=== PATIENT | female | born 1970 | race African-American/Black ===

== ENCOUNTER 2022-07-17 18:03 | Emergency (ER) | payer BC ==
[2022-07-17] MEDS ORDERED: Acetaminophen 325 MG TAB ONE (18:32)
[2022-07-17] MEDS ORDERED: Ondansetron ODT 4 MG TAB ONE (21:32)
[2022-07-17] MEDS ORDERED: Ibuprofen 200 MG TAB ONE (21:33)
== END 2022-07-17 22:08 | disposition home or self-care (01) ==
LOC: CSHERS 18:03
DX: U07.1 COVID-19 (principal); I10 Essential (primary) hypertension; F17.210 Nicotine dependence, cigarettes, uncomplicated
CPT/HCPCS: 99283; Q0162

== ENCOUNTER 2022-09-05 22:18 | Emergency (ER) | payer BC ==
[2022-09-05] MEDS ORDERED: Acetaminophen 500 MG TAB ONE (23:34)
== END 2022-09-06 01:04 | disposition home or self-care (01) ==
LOC: CSHERS 22:18
DX: J10.1 Influenza due to other identified influenza virus with other respiratory manifestations (principal); I10 Essential (primary) hypertension; F17.290 Nicotine dependence, other tobacco product, uncomplicated
CPT/HCPCS: 87804; 99284

== ENCOUNTER 2022-12-09 11:38 | Emergency (ER) | payer BC ==
[2022-12-09] MEDS ORDERED: Acetaminophen 500 MG TAB ONE (12:46)
[2022-12-09] MEDS ORDERED: Ibuprofen 200 MG TAB ONE (12:46)
== END 2022-12-09 13:58 | disposition home or self-care (01) ==
LOC: CSHERS 11:38
DX: R07.89 Other chest pain (principal); R07.81 Pleurodynia; I10 Essential (primary) hypertension; F17.290 Nicotine dependence, other tobacco product, uncomplicated

== ENCOUNTER 2024-09-20 17:01 | Emergency (ER) | payer BC ==
[2024-09-20 19:21] LABS: #Basophils 0.03 10x3/uL (0.0-0.2); #Eosinophils 0.22 10x3/uL (0.0-0.5); #Monocytes 0.77 10x3/uL (0.0-1.1); #Neutrophils 3.36 10x3/uL (1.5-8.4); %Basophils 0.5 % (0.0-2.0); %Eosinophils 3.5 % (0.0-6.0); %Monocytes 12.3 % (0.0-10.0); %Neutrophils 53.5 % (40.0-75.0); Hematocrit 39.4 % (34.9-44.5); Hemoglobin 12.6 g/dL (12.0-15.5); Mean Corpuscular Hemoglobin 28.8 pg (27.0-33.0); Mean Platelet Volume 10.9 fL (7.4-10.4); Platelet Count 232 10x3/uL (150-450); RBC Distribution Width 14.5 % (11.5-14.5); Red Blood Cell (RBC) Count 4.38 10x6/uL (3.90-5.03); White Blood Cell (WBC) Count 6.3 10x3/uL (3.5-10.5)
[2024-09-20 19:34] LABS: ALT (SGPT) 18 U/L (8-55); AST (SGOT) 17 U/L (5-34); Albumin 3.8 g/dL (3.5-5.0); Alkaline Phosphatase 55 U/L (40-110); Anion Gap 12 mmol/L (10-20); BUN (Urea Nitrogen) 19 mg/dL (9.8-20.1); Bilirubin, Total 0.2 mg/dL (0.2-1.2); Calc. Creatinine Clearance 0 mL/min (70-130); Calcium 10.1 mg/dL (7.8-10.44); Carbon Dioxide 29 mmol/L (22-29); Chloride 106 mmol/L (98-107); Estimated GFR 75; Globulin 3.8 g/dL (2.4-3.5); Glucose 92 mg/dL (70-105); Potassium 4.1 mmol/L (3.5-5.1); Protein, Total 7.6 g/dL (6.0-8.3); Sodium 143 mmol/L (136-145)
[2024-09-20] MEDS ORDERED: Ketorolac Tromethamine 30 MG (1 mL) VIAL ONE (19:50)
== END 2024-09-20 20:40 | disposition home or self-care (01) ==
LOC: CSHERS 17:01
DX: M79.89 Other specified soft tissue disorders (principal); F17.290 Nicotine dependence, other tobacco product, uncomplicated; I10 Essential (primary) hypertension
CPT/HCPCS: 36415; 80053; 83735; 85025; 96372; J1885

== ENCOUNTER 2024-09-29 16:53 | Emergency (ER) | payer BC, SELFPAY | END 2024-09-29 17:56 | disposition home or self-care (01) | LOC: CSHERS 16:53 | DX: H10.9 Unspecified conjunctivitis (principal); J32.9 Chronic sinusitis, unspecified; F17.290 Nicotine dependence, other tobacco product, uncomplicated; I10 Essential (primary) hypertension | CPT/HCPCS: 99282 ==